=== PATIENT | male | born 1970 | race Caucasian/White ===

== ENCOUNTER 2017-04-18 14:02 | Emergency (ER) | payer OTHER ==
[2017-04-18 14:03] VITALS: BMI 22.1
[2017-04-18 14:31] VITALS: TEMP 98.4
--- NOTE | 2017-04-18 14:55 | RAD ---
PROCEDURE: Right middle finger radiographs. HISTORY: finger injury COMPARISON: None available. FINDINGS: RIGHT MIDDLE FINGER: Limited evaluation of the distal 3rd digit due to suboptimal extension. Right 3rd digit appears unremarkable, without acute displaced fracture. Remainder of the right hand (as seen on the AP view) grossly unremarkable. JOINTS: No dislocation. SOFT TISSUES: Marked soft tissue swelling of the 3rd digit. No evidence of radiopaque foreign body. OTHER FINDINGS: None. IMPRESSION: Limited study. Marked soft tissue swelling of the 3rd digit. No acute displaced fracture or dislocation identified.
--- NOTE | 2017-04-18 15:20 | C.PDOC ---
History Of Present Illness 46 y/o M c PMHx asthma p/w R hand 3rd digit pain since yesterday after he was straightening his bedsheets and his finger was pulled in an uncomfortable position and he felt a snap. Now with sharp pain in the 3rd digit with pain with movement and swelling. Denies fever, chest pain. Time Seen by Provider: 04/18/17 14:36 Chief Complaint (Nursing): Upper Extremity Problem/Injury Past Medical History Vital Signs: Last Vital Signs Temp 98.4 F 04/18/17 14:29 Pulse 70 04/18/17 14:29 Resp 20 04/18/17 14:29 BP 164/85 H 04/18/17 14:29 Pulse Ox 99 04/18/17 14:29 - Medical History PMH: Anxiety, Asthma (HOSPITALIZED A CHILD-NONE RECENTLY), Bipolar Disorder, Depression, Hypercholesterolemia, Schizophrenia Denies: Diabetes, Chronic Kidney Disease, Sexually Transmitted Disease Surgical History: - [facility] Procedures CONTRAST AORTOGRAM (07/01/13) CORONAR ARTERIOGR-2 CATH (07/01/13) GROUP PSYCHOTHERAPY (03/14/16) INDIVIDUAL PSYCHOTHERAPY, SUPPORTIVE (03/14/16) LEFT HEART CARDIAC CATH (07/01/13) LT HEART ANGIOCARDIOGRAM (07/01/13) MEDICATION MANAGEMENT (03/14/16) PSYCHIAT DRUG THERAP NEC (06/22/15) Family History: States: Unknown Family Hx, [place] (mother) - Social History Hx Tobacco Use: Yes Hx Alcohol Use: Yes Hx Substance Use: Yes (marijuana) - Immunization History Hx Tetanus Toxoid Vaccination: Yes Hx Influenza Vaccination: No Hx Pneumococcal Vaccination: No Review Of Systems Except As Marked, All Systems Reviewed And Found Negative. Constitutional: Negative for: Fever Cardiovascular: Negative for: Chest Pain Physical Exam - Physical Exam Appears: No Acute Distress Extremity: Swelling (3rd digit with swelling, distal phalanx slightly flexed, unable to extend, no hand tenderness) Pulses: Left Radial: Normal, Right Radial: Normal ED Course And Treatment O2 Sat by Pulse Oximetry: 99 Medical Decision Making Medical Decision Making: FINDINGS: RIGHT MIDDLE FINGER: Limited evaluation of the distal 3rd digit due to suboptimal extension. Right 3rd digit appears unremarkable, without acute displaced fracture. Remainder of the right hand (as seen on the AP view) grossly unremarkable. JOINTS: No dislocation. SOFT TISSUES: Marked soft tissue swelling of the 3rd digit. No evidence of radiopaque foreign body. OTHER FINDINGS: None. IMPRESSION: Limited study. Marked soft tissue swelling of the 3rd digit. No acute displaced fracture or dislocation identified. Suspect mallet finger. Splint placed, f/u Hand/Ortho. Disposition - Disposition Referrals: Pedro Allen MD [Provisional Staff] - Disposition: HOME/ ROUTINE Disposition Time: 15:20 Condition: STABLE Prescriptions: Ibuprofen [Motrin] 1 tab PO Q6 #30 tab Instructions: Jammed Finger (ED) - Clinical Impression Clinical Impression: Finger injury
[2017-04-18 15:29] VITALS: BP 124/72; PULSE 72; RESP 18; O2SAT 98
== END 2017-04-18 15:30 | disposition home or self-care (01) ==
LOC: C.ER 14:02
DX: S69.91XA Unspecified injury of right wrist, hand and finger(s), initial encounter (principal); X50.9XXA Other and unspecified overexertion or strenuous movements or postures, initial encounter; Y93.E9 Activity, other interior property and clothing maintenance; Y92.003 Bedroom of unspecified non-institutional (private) residence as the place of occurrence of the external cause

== ENCOUNTER 2019-02-17 17:30 | Inpatient (IN) | payer OTHER ==
[2019-02-17 17:31] VITALS: BMI 22.1
[2019-02-17 18:56] LABS: BASO # 0.1 K/uL (0.0-0.2); BASO % 0.6 % (0.0-2.0); EOS # 0.1 K/uL (0.0-0.7); EOS % 1.1 % (0.0-4.0); HEMOGLOBIN 14.7 g/dL (12.0-18.0); LYMPH # 3.7 K/uL (1.0-4.3); LYMPH % 40.9 % (20.0-40.0); MEAN CELL VOLUME 71.2 fL (80.0-94.0); MEAN CORPUSCULAR HEMOGLOBIN 23.4 pg (27.0-31.0); MEAN CORPUSCULAR HGB CONC 32.9 g/dL (33.0-37.0); MEAN PLATELET VOLUME 7.9 fL (7.2-11.7); MONO # 0.9 K/uL (0.0-0.8); MONO % 10.1 % (0.0-10.0); NEUT # 4.3 K/uL (1.8-7.0); NEUT % 47.3 % (50.0-75.0); NRBC % 0.1 % (0.0-2.0); RBC 6.27 Mil/uL (4.40-5.90); RED CELL DISTRIBUTION WIDTH 14.9 % (11.5-14.5); WHITE BLOOD COUNT 9.1 K/uL (4.8-10.8)
[2019-02-17 19:12] LABS: ALB/GLOB RATIO 1.6 (1.0-2.1); ALBUMIN 5.3 g/dL (3.5-5.0); ALT/SGPT 17 U/L (21-72); AST/SGOT 47 U/L (17-59); BLOOD UREA NITROGEN 8 mg/dL (9-20); CALCIUM 10.2 mg/dl (8.6-10.4); GFR NON-AFRICAN AMERICAN > 60; PH,URINE 6.5 (5.0-8.0); URINE BILIRUBIN NEGATIVE (NEGATIVE); URINE BLOOD TRACE (NEGATIVE); URINE CLARITY CLEAR (Clear); URINE COLOR STRAW (YELLOW); URINE GLUCOSE (UA) NEG (Normal); URINE LEUKOCYTE ESTERASE NEG Leu/uL (Negative); URINE PROTEIN NEGATIVE (NEGATIVE); URINE UROBILINOGEN 0.2 mg/dL (0.2-1.0)
[2019-02-17 19:24] LABS: BARBITURATES, UR NEGATIVE (NEGATIVE); BENZODIAZEPINES, UR NEGATIVE (NEGATIVE); OPIATES, UR NEGATIVE (NEGATIVE); PHENCYCLIDINE, UR NEGATIVE (NEGATIVE)
--- NOTE | 2019-02-17 21:49 | C.PDOC ---
History Of Present Illness 48 y/o male, with history of schizophrenia and taking his medications, comes in to ED stating that he feels stressed and depressed. Patient denies SI/HI. Denies drug use or hallucinations. Patient admits to drinking tonight. <Deniz Bowman DO - Last Filed: 02/17/19 21:46> History Per: Patient History/Exam Limitations: no limitations Onset/Duration Of Symptoms: Days Current Symptoms Are (Timing): Still Present <Deniz Bowman DO - Last Filed: 02/17/19 21:46> <Danilo Elias - Last Filed: 02/18/19 06:21> Time Seen by Provider: 02/17/19 17:43 Chief Complaint (Nursing): Psychiatric Evaluation Past Medical History Reviewed: Historical Data, Nursing Documentation, Vital Signs Vital Signs: Last Vital Signs Temp 98 F 02/17/19 17:34 Pulse 133 H 02/17/19 17:34 Resp 20 02/17/19 17:34 BP 127/86 02/17/19 17:34 Pulse Ox 97 02/17/19 17:34 - Medical History PMH: Anxiety, Asthma (HOSPITALIZED A CHILD-NONE RECENTLY), Bipolar Disorder, Depression, Hypercholesterolemia, Schizophrenia Denies: Diabetes, Chronic Kidney Disease, Sexually Transmitted Disease Surgical History: - [facility] Procedures CONTRAST AORTOGRAM (07/01/13) CORONAR ARTERIOGR-2 CATH (07/01/13) GROUP PSYCHOTHERAPY (03/14/16) INDIVIDUAL PSYCHOTHERAPY, SUPPORTIVE (03/14/16) LEFT HEART CARDIAC CATH (07/01/13) LT HEART ANGIOCARDIOGRAM (07/01/13) MEDICATION MANAGEMENT (03/14/16) PSYCHIAT DRUG THERAP NEC (06/22/15) Family History: States: Unknown Family Hx, [place] (mother) - Social History Hx Tobacco Use: Yes Hx Alcohol Use: Yes Hx Substance Use: Yes (marijuana) - Immunization History Hx Tetanus Toxoid Vaccination: Yes Hx Influenza Vaccination: No Hx Pneumococcal Vaccination: No <Deniz Bowman DO - Last Filed: 02/17/19 21:46> Vital Signs: Last Vital Signs Temp 98 F 02/18/19 01:12 Pulse 102 H 02/18/19 01:12 Resp 19 02/18/19 01:12 BP 102/67 02/18/19 01:12 Pulse Ox 96 02/18/19 01:12 - [facility] Procedures CONTRAST AORTOGRAM (07/01/13) CORONAR ARTERIOGR-2 CATH (07/01/13) GROUP PSYCHOTHERAPY (03/14/16) INDIVIDUAL PSYCHOTHERAPY, SUPPORTIVE (03/14/16) LEFT HEART CARDIAC CATH (07/01/13) LT HEART ANGIOCARDIOGRAM (07/01/13) MEDICATION MANAGEMENT (03/14/16) PSYCHIAT DRUG THERAP NEC (06/22/15) <Danilo Elias - Last Filed: 02/18/19 06:21> Review Of Systems Except As Marked, All Systems Reviewed And Found Negative. Constitutional: Negative for: Fever Psych: Positive for: Depression. Negative for: Psychosis (hallucinations), Terri cidal ideation (or homicidal ideation) <Deniz Bowman DO - Last Filed: 02/17/19 21:46> Physical Exam - Physical Exam Appears: Non-toxic, No Acute Distress Skin: Warm, Dry Head: Atraumatic Eye(s): bilateral: Normal Inspection Oral Mucosa: Moist Neck: Supple Cardiovascular: Rhythm Regular, No Murmur Respiratory: Normal Breath Sounds, No Rales, No Rhonchi, No Wheezing Gastrointestinal/Abdominal: Soft, No Tenderness Extremity: Bilateral: Atraumatic, Normal ROM Neurological/Psych: Oriented x3, Normal Speech <Deniz Bowman DO - Last Filed: 02/17/19 21:46> ED Course And Treatment - Laboratory Results Result Diagrams: 02/17/19 18:49 02/17/19 18:49 Lab Results: Total Bilirubin 0.6 mg/dL (0.2-1.3) 02/17/19 18:49 AST 47 U/L (17-59) 02/17/19 18:49 ALT 17 U/L (21-72) L D 02/17/19 18:49 Alkaline Phosphatase 73 U/L (38-126) 02/17/19 18:49 Total Protein 8.7 g/dL (6.3-8.3) H 02/17/19 18:49 Albumin 5.3 g/dL (3.5-5.0) H 02/17/19 18:49 Globulin 3.4 gm/dL (2.2-3.9) 02/17/19 18:49 Albumin/Globulin Ratio 1.6 (1.0-2.1) 02/17/19 18:49 Urine Color Straw (YELLOW) 02/17/19 18:49 Urine Clarity Clear (Clear) 02/17/19 18:49 Urine pH 6.5 (5.0-8.0) 02/17/19 18:49 Ur Specific [place] 1.005 (1.003-1.030) 02/17/19 18:49 Urine Protein Negative mg/dL (NEGATIVE) 02/17/19 18:49 Urine Glucose (UA) Neg mg/dL (Normal) 02/17/19 18:49 Urine Ketones Negative mg/dL (NEGATIVE) 02/17/19 18:49 Urine Blood Trace (NEGATIVE) 02/17/19 18:49 Urine Nitrate Negative (NEGATIVE) 02/17/19 18:49 Urine Bilirubin Negative (NEGATIVE) 02/17/19 18:49 Urine Urobilinogen 0.2 mg/dL (0.2-1.0) 02/17/19 18:49 Ur Leukocyte Esterase Neg Ramirez/uL (Negative) 02/17/19 18:49 Urine WBC (Auto) < 1 /hpf (0-5) 02/17/19 18:49 Urine RBC (Auto) < 1 /hpf (0-3) 02/17/19 18:49 O2 Sat by Pulse Oximetry: 97 (RA) Pulse Ox Interpretation: Normal <Deniz Bowman DO - Last Filed: 02/17/19 21:46> - Laboratory Results Result Diagrams: 02/17/19 18:49 02/17/19 18:49 Lab Results: Total Bilirubin 0.6 mg/dL (0.2-1.3) 02/17/19 18:49 AST 47 U/L (17-59) 02/17/19 18:49 ALT 17 U/L (21-72) L D 02/17/19 18:49 Alkaline Phosphatase 73 U/L (38-126) 02/17/19 18:49 Total Protein 8.7 g/dL (6.3-8.3) H 02/17/19 18:49 Albumin 5.3 g/dL (3.5-5.0) H 02/17/19 18:49 Globulin 3.4 gm/dL (2.2-3.9) 02/17/19 18:49 Albumin/Globulin Ratio 1.6 (1.0-2.1) 02/17/19 18:49 Urine Color Straw (YELLOW) 02/17/19 18:49 Urine Clarity Clear (Clear) 02/17/19 18:49 Urine pH 6.5 (5.0-8.0) 02/17/19 18:49 Ur Specific [place] 1.005 (1.003-1.030) 02/17/19 18:49 Urine Protein Negative mg/dL (NEGATIVE) 02/17/19 18:49 Urine Glucose (UA) Neg mg/dL (Normal) 02/17/19 18:49 Urine Ketones Negative mg/dL (NEGATIVE) 02/17/19 18:49 Urine Blood Trace (NEGATIVE) 02/17/19 18:49 Urine Nitrate Negative (NEGATIVE) 02/17/19 18:49 Urine Bilirubin Negative (NEGATIVE) 02/17/19 18:49 Urine Urobilinogen 0.2 mg/dL (0.2-1.0) 02/17/19 18:49 Ur Leukocyte Esterase Neg Ramirez/uL (Negative) 02/17/19 18:49 Urine WBC (Auto) < 1 /hpf (0-5) 02/17/19 18:49 Urine RBC (Auto) < 1 /hpf (0-3) 02/17/19 18:49 <Danilo Elias - Last Filed: 02/18/19 06:21> Medical Decision Making Medical Decision Making: Plan: --Labs --UA --Ativan --Haldol Progress: Patient became extremely agitated in ER, screaming at staff. Patient is medically cleared for psychiatric evaluation. <Deniz Bowman DO - Last Filed: 02/17/19 21:46> Disposition <Deniz Bowman DO - Last Filed: 02/17/19 21:46> Discussed With DrYasir: [place] Doctor Will See Patient In The: Hospital Counseled Patient/Family Regarding: Diagnosis - Disposition Disposition Time: 06:20 - POA Present On Arrival: None <Danilo Elias Filed: 02/18/19 06:21> - Disposition Disposition: HOSPITALIZED Condition: STABLE Forms: [facility] ([place]) - Clinical Impression Clinical Impression: Major depressive disorder, Alcohol use disorder, severe, dependence - Scribe Statement The provider has reviewed the documentation as recorded by the Leatha Yost Provider Attestation: All medical record entries made by the Leatha were at my direction and personally dictated by me. I have reviewed the chart and agree that the record accurately reflects my personal performance of the history, physical exam, medical decision making, and the department course for this patient. I have also personally directed, reviewed, and agree with the discharge instructions and disposition. <Deniz Bowman DO - Last Filed: 02/17/19 21:46>
--- NOTE | 2019-02-18 06:52 | PCM.BM ---
<Mika Buck Tapan - Last Filed: 02/18/19 06:49> Treatment Plan Problems - Problems identified on initial assessmt Suicidal Ideation Date Initiated: 02/18/19 Time Initiated: 06:45 Assessment reference: NA Status: Monitor High Risk: Violence Date Initiated: 02/18/19 Time Initiated: 06:45 Assessment reference: NA Status: Active Comment: Patient states having Homicidal Ideation Treatment assets and liabiliti Patient Assests: cooperative, ADL independent, negotiates basic needs, cognitively intact Patient Liabilities: relationship conflicts, substance abuse (UDS positive for Cocaine, Marijuana, BAL 244) - Milieu Protocol Maintain good personal hygiene: daily Encourage regular showers, daily Remind patient to perform daily oral care, every shift Assist patient to perform ADL's Conduct patient checks and document Observation sheet: Q15 minutes Maintain personal safety: every shift Educate patient to report safety concerns to staff, every shift Monitor environment for contraband/sharps Medication safety: Monitor for expected outcome, potential side effects: every shift, Assess barriers to learning: every shift, Assess readiness for medication education: every shift <Carolyn Sparks - Last Filed: 02/18/19 12:23> <Moose Mays - Last Filed: 02/19/19 22:18> - Diagnosis (1) Schizoaffective disorder, depressive type Status: Acute Interventions: 02/19/19 22:16 * Assess/adjust medications daily and /or as needed * See patient on an individual basis 7x/week to assess level of manic behaviors and stability * Discuss risks, benefits, side effects and alternatives of medications (2) Cannabis use disorder, severe, dependence Status: Acute Interventions: 02/19/19 22:17 * Assess 7x/week regarding severity of withdrawal * Educate regarding risks, benefits, side effects and alternatives of medications * Use Motivational Interviewing for abstinence * Use CBT for relapse prevention * Medication management for withdrawal symptoms * Encourage medication assisted treatment (3) Generalized anxiety disorder Status: Acute Interventions: 02/19/19 22:17 * Assess/adjust medications daily and /or as needed * See patient on an individual basis 7x/week to assess level of manic behaviors and stability * Discuss risks, benefits, side effects and alternatives of medications (4) Alcohol use disorder, moderate, dependence Status: Acute Interventions: 02/19/19 22:17 * Assess 7x/week regarding severity of withdrawal * Educate regarding risks, benefits, side effects and alternatives of medications * Use Motivational Interviewing for abstinence * Use CBT for relapse prevention * Medication management for withdrawal symptoms * Encourage medication assisted treatment
--- NOTE | 2019-02-18 12:47 | PCM.PSYCH ---
Initial Psychiatric Evaluation - Initial Psychiatric Evaluation Chief Complaint (in patient's own words): I was depressed for last 1 week and I need help. History of Present Illness and Precipitating Events: 48 y/o unmarried disabled M with a past psychiatric history of depression,anxiety,and schizophrenia. Pt has no children and lives at home with girlfriend of 25 years. Pt was admitted to [facility] for major depressive episode and anxiety onset 1 week ago. He states that he feels anxious and that "he cant sit still" Reports that he has been stressed out with his girlfriend at home. He has not slept and states that he has lost weight recently. He feels guilty for yelling at his girlfriend. Pt states that he contemplated suicide, but does not currently have a plan. Pt has history of 3 suicide attempts in the past. The most recent attempt was a year ago when the patient tried to OD on pills. Currently denies homicidal ideations. Denies that he wants to hurt his . He does admit to hearing voices. Pt had been admitted to the [facility] 16 times in the past, with 4 admissions at [facility]. Pt sees Dr. Faria ([facility]) and has been following [facility] for 10 years. Pt currently smokes marijuana daily. States that he smokes 4-5 blunts per day and states that he started smoking at the age of 11 years. Pt currently drinks 2 24oz beers in one day. States that he drinks once per week. Reports that he has attended rehab many times. His longest period of sobriety was 3 years after at tending a [facility] rehab program in [place]. Currently smokes 1 pack of cigarettes per day.States that he would like to go back to [facility] and has an appointment with them scheduled for February 21. Psych History:Schizophrenia (Dx 1999), Major Depression, Generalized Anxiety Disorder, 16 psych admissions Medications: Buspar, Seroquel, Paroxitine, Benztropine PMHX:unknown ALL: NKDA Fam Psych H: Denies Legal Hx: Denies Trauma: Denies Social: Patient was born in ,has an 8th grade education, unemployed (last worked 1 year ago), on disability for mental issues, no children , lives with g irlfriend of the last 25 years, pt is 5'7' and 140 pounds Current Medications: Active Medications Generic Name Dose Route Start Last Admin Trade Name Freq PRN Reason Stop Dose Admin Hydroxyzine HCl 50 mg 02/18/19 06:54 02/18/19 07:04 Atarax PO 50 mg Q6H PRN Administration Anxiety Pneumococcal Polyvalent Vaccine 0.5 ml 02/21/19 10:00 Pneumovax 23 Vaccine IM 02/21/19 10:01 .ONCE ONE Past Psychiatric History - Past Psychiatric History Previous Treatment History: Inpatient Prior Professional Help: Patient is also following up at [facility], [facility]: Mostly at [facility] History of Abuse: None reported History of ETOH/Drug Use: See HPI History of Family Illness: None reported Pertinent Medical Hx (Current Medical&Sleep Prob, Allergies): Allergies Allergy/AdvReac Type Severity Reaction Status Date / Time No Known Allergies Allergy Verified 02/17/19 17:38 Ibuprofen [Motrin] 1 tab PO Q6 #30 tab 04/18/17 Trazodone HCl 100 mg PO HS 04/18/17 Review of Systems - Psychiatric Psychiatric: As Per HPI, Anxiety, Depression, Suicidal Ideation Mental Status Examination - Personal Presentation Personal Presentation: Looks stated age - Affect Affect: Depressed - Motor Activity Motor Activity: Calm - Reliability in Providing Information Reliability in Providing Information: Fair - Speech Speech: Organized - Mood Mood: Depressed - Formal Thought Process Formal Thought Process: No Impairment - Hallucinations/Delusions Hallucinations: Other (None reported at the time of evaluation) Delusions: Other - Obsessions/Compulsions Obsessions: None Compulsions: None - Cognitive Functions Orientation: Person, Place, Situation, Time Sensorium: Alert Attention/Concentration: Attentive Abstract Thinking: [place] Estimate of Intelligence: Average Judgement: Intact, as evidence by: Insight regarding need for hospitalization Memory: Recent intact, as evidence by: Ability to recall events of the day, Remote intact, as evidenced by: Ability to recall historical events - Risk Risk: Withdrawal, Diminished functioning - Strength & Assets Inventory Strength & Assets Inventory: Cooperative - Limitations Limitations: Other (Lives with girlfriend) DSM 5 DX - DSM 5 DSM 5 Diagnosis: Schizoaffective disorder depressive type. Generalized anxiety disorder Cannabis use disorder severe Alcohol use disorder moderate - Recommended/Plan of Treatment Treatment Recommendations and Plan of Treatment: Patient education. Supportive therapy. CBT for relapse prevention. [place] for abstinence. Will start his home medications. Librium for alcohol withdrawal symptoms. Other PRN medications. Patient will go back to his psychiatrist at [facility] for follow-up care after discharge from the hospital. Projected ELOS: 8-10 days - Smoking Cessation Smoking Cessation Initiated: No
[2019-02-19 06:13] VITALS: O2SAT 96
[2019-02-19] MEDS: Multiple Vitamins Tab PO SCH (09:24)
--- NOTE | 2019-02-19 14:38 | PCM.PYCHPN ---
Psychiatric Progress Note - Psychiatric Progress Note Patient seen today, length of contact: 15 minutes Patient Chief Complaint: I am feeling little better. Problems Identified/Issues Discussed: Patient seen, chart reviewed, case discussed with the staff. Issues related to illness and treatment were discussed with the patient and staff. Reported compliant with treatment with no adverse effects. Tolerating treatment very well. Patient reported not feeling much better as still experiencing withdrawal symptoms including shaking, sweating, headache, anxiety and sleeping difficulty. Mood reported as depressed. Affect appropriate. Patient needs more time for stabilization. Aftercare discussed with the patient. Patient denied any delusions, auditory or visual hallucinations, no suicidal ideations or homicidal ideations at the time of evaluation. Medical Problems: None reported Diagnostic Results: Reviewed Medication Change: No Medical Record Reviewed: Yes Mental Status Examination - Cognitive Function Orientation: Person, Place, Situation, Time Memory: Intact Attention: WNL Concentration: WNL Association: [place] Fund of Knowledge: [facility] Decription of patient's judgement and insights: Fair - Mood Mood: Depressed, Anxious - Affect Affect: Depressed - Speech Speech: Appropriate - Formal Thought Process Formal Thought Process: No Impairment Psychotic Thoughts and Behaviors: None - Homicidal Ideation Homicidal Ideation: No Goal/Treatment Plan - Goal/Treatment Plan Need for Continued Stay: Remain at risks for inpatient hospitalization, Discharge may exacerbated symptoms, Severe functional impairment Progress Toward Problem(s) and Goals/Treatment Plan: Patient education. Supportive therapy. CBT for relapse prevention. [place] for abstinence. Continue treatment as before. Patient will go back to his psychiatrist at [facility] for follow-up care after discharge from the hospital. Estimated Date of D/C: 02/25/19 - Smoking Cessation Smoking Cessation Initiated: No
[2019-02-20] MEDS: Multiple Vitamins Tab PO SCH (09:58)
--- NOTE | 2019-02-20 16:00 | PCM.PYCHPN ---
Psychiatric Progress Note - Psychiatric Progress Note Patient seen today, length of contact: 15 minutes Patient Chief Complaint: I am feeling better. Problems Identified/Issues Discussed: Patient seen, chart reviewed, case discussed with the staff. Issues related to illness and treatment were discussed with the patient and staff. Reported compliant with treatment with no adverse effects. Tolerating treatment very well. Patient reported feeling better as still experiencing withdrawal symptoms including shaking, sweating, headache and anxiety. Mood reported as anxious. Affect appropriate. Patient needs more time for stabilization. Aftercare discussed with the patient. Patient denied any delusions, auditory or visual hallucinations, no suicidal ideations or homicidal ideations at the time of evaluation. Medical Problems: None reported Diagnostic Results: Reviewed DSM 5 Symptoms Update: Some improvement with treatment. Medication Change: No Medical Record Reviewed: Yes Mental Status Examination - Cognitive Function Orientation: Person, Place, Situation, Time Memory: Intact Attention: WNL Concentration: WNL Association: [place] Fund of Knowledge: [place] Decription of patient's judgement and insights: Fair - Mood Mood: Anxious - Affect Affect: Other (Appropriate) - Speech Speech: Appropriate - Formal Thought Process Formal Thought Process: No Impairment Psychotic Thoughts and Behaviors: None - Suicidal Ideation Suicidal Ideation: No - Homicidal Ideation Homicidal Ideation: No Goal/Treatment Plan - Goal/Treatment Plan Need for Continued Stay: Remain at risks for inpatient hospitalization, Discharge may exacerbated symptoms, Severe functional impairment Progress Toward Problem(s) and Goals/Treatment Plan: Patient education. Supportive therapy. CBT for relapse prevention. [place] for abstinence. Continue treatment as before. Patient will go back to his psychiatrist at [facility] for follow-up care after discharge from the hospital. Estimated Date of D/C: 02/25/19 - Smoking Cessation Smoking Cessation Initiated: No
[2019-02-21 06:39] VITALS: RESP 18
[2019-02-21] MEDS ORDERED: Pneumococcal 23-Valent Vaccine IM ONE (10:00)
[2019-02-21] MEDS: Multiple Vitamins Tab PO SCH (10:38)
--- NOTE | 2019-02-21 17:06 | PCM.PYCHPN ---
Psychiatric Progress Note - Psychiatric Progress Note Patient seen today, length of contact: 15 minutes Patient Chief Complaint: I am feeling much better. Problems Identified/Issues Discussed: Patient seen, chart reviewed, case discussed with the staff. Issues related to illness and treatment were discussed with the patient and staff. Reported compliant with treatment with no adverse effects. Tolerating treatment very well. Patient reported feeling much better. Mood reported as anxious. Affect appropriate. Patient needs more time for stabilization. Aftercare discussed with the patient. Patient denied any delusions, auditory or visual hallucinations, no suicidal ideations or homicidal ideations at the time of evaluation. Medical Problems: None reported Diagnostic Results: Reviewed DSM 5 Symptoms Update: Improving with treatment. Medication Change: No Medical Record Reviewed: Yes Mental Status Examination - Cognitive Function Orientation: Person, Place, Situation, Time Memory: Intact Attention: WNL Concentration: WNL Association: WNL Fund of Knowledge: [facility] Decription of patient's judgement and insights: Fair - Mood Mood: Anxious - Affect Affect: Other (Appropriate) - Speech Speech: Appropriate - Formal Thought Process Formal Thought Process: No Impairment Psychotic Thoughts and Behaviors: None - Suicidal Ideation Suicidal Ideation: No - Homicidal Ideation Homicidal Ideation: No Goal/Treatment Plan - Goal/Treatment Plan Need for Continued Stay: Remain at risks for inpatient hospitalization, Discharge may exacerbated symptoms, Severe functional impairment Progress Toward Problem(s) and Goals/Treatment Plan: Patient education. Supportive therapy. CBT for relapse prevention. OK for abstinence. Continue treatment as before. Patient will go back to his psychiatrist at [facility] for follow-up care after discharge from the hospital. Estimated Date of D/C: 02/22/19 - Smoking Cessation Smoking Cessation Initiated: No
[2019-02-22 07:03] VITALS: BP 124/86; PULSE 81; TEMP 98.3
[2019-02-22] MEDS: Multiple Vitamins Tab PO SCH (09:08)
--- NOTE | 2019-02-22 09:54 | PCM.PYCHDC ---
Mental Status Examination - Mental Status Examination Orientation: Person, Place, Situation, Time Memory: Intact Mood: Neutral Affect: Other (Appropriate) Speech: Appropriate Attention: WNL Concentration: WNL Association: WNL Fund of Knowledge: WNL Formal Thought Process: No Impairment Description of patient's judgement and insight: Fair Psychotic Thoughts and Behaviors: None Suicidal Ideation: No Current Homicidal Ideation?: No Discharge Summary - Discharge Note Reason for Hospitalization: Schizoaffective disorder depressive type. Generalized anxiety disorder Cannabis use disorder severe Alcohol use disorder moderate Laboratory Data: Reviewed Consultations:: List each consultation separately and include: 1. Reason for request. 2. Findings. 3. Follow-up Summary of Hospital Course include:: 1. Description of specific treatment plan utilized for patients during their course of treatmen. 2. Summarize the time- course for resolution of acute symptoms and/or regressed behaviors. 3. Describe issues identified and worked on during hospitalization. 4. Describe medication utilized. 5. Describe medical problems identified and treated. 6. Reassessment of suicide risk Summary of Hospital Course: 48 y/o unmarried disabled M with a past psychiatric history of depression,anxiety,and schizophrenia. Pt has no children and lives at home with girlfriend of 25 years. Pt was admitted to [facility] for major depressive episode and anxiety onset 1 week ago. He states that he feels anxious and that "he cant sit still" Reports that he has been stressed out with his girlfriend at home. He has not slept and states that he has lost weight recently. He feels guilty for yelling at his girlfriend. Pt states that he contemplated suicide, but does not currently have a plan. Pt has history of 3 suicide attempts in the past. The most recent attempt was a year ago when the patient tried to OD on pills. Currently denies homicidal ideations. Denies that he wants to hurt his . He does admit to hearing voices. Pt had been admitted to the [facility] 16 times in the past, with 4 admissions at [facility]. Pt sees Dr. Faria ([facility]) and has been following [facility] for 10 years. Pt currently smokes marijuana daily. States that he smokes 4-5 blunts per day and states that he started smoking at the age of 11 years. Pt currently drinks 2 24oz beers in one day. States that he drinks once per week. Reports that he has attended rehab many times. His longest period of sobriety was 3 years after attending a [facility] rehab program in [place]. Currently smokes 1 pack of cigarettes per day.States that he would like to go back to [facility] and has an appointment with them scheduled for February 21. Psych History:Schizophrenia (Dx 1999), Major Depression, Generalized Anxiety Disorder, 16 psych admissions Medications: Buspar, Seroquel, Paroxitine, Benztropine PMHX:unknown ALL: NKDA Fam Psych H: Denies Legal Hx: Denies Trauma: Denies Social: Patient was born in ,has an 8th grade education, unemployed (last wor ked 1 year ago), on disability for mental issues, no children , lives with girlfriend of the last 25 years, pt is 5'7' and 140 pounds During his stay in the hospital, patient was treated with Librium taper. He was also started on his home medications including Paxil, Haldol and gabapentin.Patient was also attending groups and other activities on the unit, with the above treatment patient started feeling better. Today patient had no withdrawal symptoms and he was stable for discharge from the hospital. At the time of evaluation and discharge, patient was awake, alert and oriented x3, had no delusions, no auditory or visual hallucinations, no suicidal ideations or homicidal ideations. Patient was discharged in stable condition. - Diagnosis (1) Schizoaffective disorder, depressive type Status: Acute (2) Cannabis use disorder, severe, dependence Status: Acute (3) Generalized anxiety disorder Status: Acute (4) Alcohol use disorder, moderate, dependence Status: Acute - Final Diagnosis (DSM 5) Condition upon Discharge: STABLE Disposition: HOME/ ROUTINE Follow-up Treatment Plan: Patient will go back to his psychiatrist at [facility] for follow-up care after discharge from the hospital. Prescriptions/Medication Reconciliation: Benztropine [Cogentin] 1 mg PO BID #60 tab Gabapentin [Neurontin] 400 mg PO TID #90 cap PARoxetine [Paxil] 10 mg PO DAILY #30 tab QUEtiapine [Seroquel] 100 mg PO TID #90 tab risperiDONE [RisperDAL Tab] 1 mg PO TID #90 tab Trazodone HCl 100 mg PO HS #30 tablet - Smoking Cessation Smoking Cessation Medication prescribed: No - Antipsychotic Medications Pt discharged on 2 or more routine antipsychotic medications: No
== END 2019-02-22 10:16 | disposition home or self-care (01) | DRG 885 ==
LOC: C.ER 17:30 → C.5E 02-18 06:21
PROC: GZ56ZZZ Individual Psychotherapy, Supportive (ICD-10-PCS; principal; 2019-02-18)
DX: F25.1 Schizoaffective disorder, depressive type (principal); F17.210 Nicotine dependence, cigarettes, uncomplicated; F41.1 Generalized anxiety disorder; F12.20 Cannabis dependence, uncomplicated; F10.20 Alcohol dependence, uncomplicated; Y90.8 Blood alcohol level of 240 mg/100 ml or more